=== PATIENT | male | born 1985 | race Caucasian/White ===

== ENCOUNTER 2017-12-03 23:43 | Emergency (ER) | payer OTHER | END 2017-12-04 05:17 | disposition home or self-care (01) | LOC: FTE 23:43 | DX: F41.9 Anxiety disorder, unspecified (principal); J45.909 Unspecified asthma, uncomplicated; F17.210 Nicotine dependence, cigarettes, uncomplicated; R00.2 Palpitations | CPT/HCPCS: 71045; 82962; 93005; 99285-25 ==

== ENCOUNTER 2018-02-08 04:03 | Emergency (ER) | payer OTHER ==
[2018-02-08] MEDS: KETOROLAC 30 MG INJ IV (04:56)
[2018-02-08] MEDS: LIDOCAINE 1% (MDV) 10 ML INJ INFIL (04:56)
[2018-02-08] MEDS: CLINDAMYCIN 900 MG/D5W (PMX) 50 ML IVPB (05:15)
[2018-02-08] MEDS: morphine 4 MG/ML VIAL IV (05:15)
== END 2018-02-08 06:17 | disposition home or self-care (01) ==
LOC: FTE 04:03
DX: L02.414 Cutaneous abscess of left upper limb (principal); L03.114 Cellulitis of left upper limb; F17.210 Nicotine dependence, cigarettes, uncomplicated
CPT/HCPCS: 10060; 96365; 96375; 99284-25

== ENCOUNTER 2018-02-10 12:28 | Emergency (ER) | payer OTHER | END 2018-02-10 13:24 | disposition home or self-care (01) | LOC: E/R 12:28 | DX: Z48.01 Encounter for change or removal of surgical wound dressing (principal); F17.200 Nicotine dependence, unspecified, uncomplicated; Z71.6 Tobacco abuse counseling | CPT/HCPCS: 99283; Z7502 ==

== ENCOUNTER 2018-07-11 18:23 | Emergency (ER) | payer OTHER | END 2018-07-11 20:59 | disposition left against medical advice (07) | LOC: FTE 18:23 | DX: M79.641 Pain in right hand (principal); F17.210 Nicotine dependence, cigarettes, uncomplicated | CPT/HCPCS: 73130; 73130-RT; 99283-25 ==

== ENCOUNTER 2018-08-21 05:12 | Emergency (ER) | payer OTHER ==
[2018-08-21] MEDS: KETOROLAC 30 MG INJ IV (06:37)
[2018-08-21] MEDS: SOD CHLORIDE 0.9% 1,000 ML IV (06:37)
[2018-08-21] MEDS: CLINDAMYCIN 600 MG/D5W (PMX) 50 ML IVPB (06:49)
== END 2018-08-21 07:37 | disposition home or self-care (01) ==
LOC: FTE 05:12
DX: K04.7 Periapical abscess without sinus (principal); F17.210 Nicotine dependence, cigarettes, uncomplicated
CPT/HCPCS: 96374; 96375; 99284-25